=== PATIENT | female | born 2000 | race Caucasian/White ===

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

== ENCOUNTER 2023-03-04 05:11 | Observation (INO) ==
[2023-03-04] MEDS ORDERED: TXA 10% Non-IV Routes 100 MG/ML VIAL ONE (05:21)
[2023-03-04] MEDS ORDERED: ONDANSETRON INJ 2 MG/ML 2 ML VIAL IV STA (05:32)
[2023-03-04] MEDS ORDERED: TRANEXAMIC ACID 100 MG/ML 10 ML VIAL IV STA (05:32)
[2023-03-04] MEDS ORDERED: DESMOPRESSIN ACETATE 23 MCG in SODIUM CHLORIDE 0.9% 50 ML IV STA (05:32)
[2023-03-04] MEDS ORDERED: FAMOTIDINE 20MG IV PUSH 20 MG/5 ML SYR IV STA (05:32)
[2023-03-04] MEDS ORDERED: TRANEXAMIC ACID / 0.7% NACL 1,000 MG/100 ML BAG IV STA (05:38)
[2023-03-04] MEDS ORDERED: SODIUM CHLORIDE 0.9% 1,000 ML IV SCH (05:45)
--- NOTE | 2023-03-04 05:50 | Emergency Department Note ---
History of Present Illness General Chief complaint: Bleeding Stated complaint: BLEEDING FROM TONSILECTOMY 18 DAYS AGO Time Seen by Provider: 03/04/23 05:19 History of Present Illness This 22-year-old female had a tonsillectomy on 13 February at [place] who has a history of von Willebrand's disease. Patient apparently was eating popcorn this morning at 1 AM and some the kernels got stuck at her tonsillar pillar region. Patient states she has been bleeding pretty heavily for the past few hours. No history of blood transfusions in the past. Patient called her hotel service manager sewer separation designer Dr Polanco and was advised to take DDAVP and TXA when she got to the ER. Patient's surgery was done in [place] at [facility] by Dr. Lara. Home Medications Medication Instructions Recorded Confirmed Type loratadine 10 mg tablet PO 10/28/18 09/12/22 History norgestimate 0.25 mg-ethinyl 1 tab PO DAILY #28 tabs 09/18/20 09/12/22 Rx estradiol 35 mcg tablet (Sprintec (28)) polysaccharide iron complex 150 mg 150 mg PO DAILY #90 caps 09/18/20 09/12/22 Rx iron capsule (Ferrex) montelukast 10 mg tablet 10 mg PO DAILY #90 tabs 10/10/21 09/12/22 Rx budesonide-formoterol HFA 80 2 puff inhalation BID #10.2 grams 02/22/22 09/12/22 Rx mcg-4.5 mcg/actuation aerosol inhaler (Symbicort) lamotrigine 150 mg tablet 150 mg PO DAILY 04/04/22 09/12/22 History (Lamictal) lumateperone 42 mg capsule 42 mg PO DAILY 06/13/22 09/12/22 History (Caplyta) albuterol sulfate 90 mcg/actuation 2 puff inhalation Q4H PRN 12/30/22 Rx aerosol inhaler bronchospasm #3 Inhalers Allergies Allergy/AdvReac Type Severity Reaction Status Date / Time shellfish derived Allergy Severe HIVES, Verified 09/12/22 15:17 SWELLING house dust mite Allergy Intermediate Verified 09/12/22 15:17 cat dander Allergy Unknown Verified 09/12/22 15:17 peach Allergy Unknown Verified 09/12/22 15:17 No Known Drug Allergies Allergy Verified 09/12/22 15:17 Past Med/Surg History Medical History Shellfish allergy Tingling and throat problems with ingestion. Epinephrine pen until can go to installer technician next year ASD (atrial septal defect) spontaneous closure. s/p cardiology clearance bc chest pain. echo normal. History of Lyme disease 2012 Pneumonia, unspecified organism 2010 bilateral. Encounter for prophylactic administration of rabies immune globulin Exposure to bat without known bite Surgical History History of placement of ear tubes History of dental surgery TADS procedure. 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 marital status: Single Current Living Situation: Family Current Living Situation Comment: alone with 3 roommates Feels Safe at Home: Yes Childhood Exposure to Second-Hand Smoke: No Dental Care, Regularly: Yes Seatbelt Use: always Sunscreen Use: Yes Review of Systems A total of 10 systems reviewed and were otherwise negative Physical Exam Vital Signs Vital Signs - 24 hr 03/04/23 05:14 03/04/23 05:33 03/04/23 05:33 Temperature 36.5 C Temperature Source Temporal Artery Scan Pulse Rate 96 H Pulse Rate from SpO2 Sensor Respiratory Rate 20 Respiratory Effort / Characteristics Non-Labored Spontaneous Respiratory Depth Normal Blood Pressure 136/83 Blood Pressure Mean 100 Pulse Oximetry 98 98 Oxygen Delivery Method Room Air Room Air Room Air Sepsis Recent Fever Within 48 Hours No Sepsis New/Unexplained Change in Mental Status No Sepsis Action Taken by Nursing No Action Required 03/04/23 05:38 03/04/23 05:38 03/04/23 05:39 Temperature Temperature Source Pulse Rate 85 91 H Pulse Rate from SpO2 Sensor 91 H Respiratory Rate 16 Respiratory Effort / Characteristics Respiratory Depth Blood Pressure 137/74 Blood Pressure Mean 112 Pulse Oximetry 98 Oxygen Delivery Method Sepsis Recent Fever Within 48 Hours Sepsis New/Unexplained Change in Mental Status Sepsis Action Taken by Nursing 03/04/23 06:00 03/04/23 06:01 03/04/23 06:01 Temperature Temperature Source Pulse Rate 90 87 Pulse Rate from SpO2 Sensor Respiratory Rate 14 12 Respiratory Effort / Characteristics Respiratory Depth Blood Pressure 119/73 Blood Pressure Mean 91 Pulse Oximetry Oxygen Delivery Method Sepsis Recent Fever Within 48 Hours Sepsis New/Unexplained Change in Mental Status Sepsis Action Taken by Nursing VITALS: Vitals are noted on the nurse's note and reviewed by myself. Vital signs stable. GENERAL: Pleasant female actively spitting up blood, in no acute distress, nondiaphoretic, well-developed well-nourished. SKIN: The skin was without rashes, erythema, edema, or bruising. There is no tenting of the skin. Capillary reflex less than 2 seconds. HEAD: Normocephalic atraumatic. EARS: External auditory canals clear, tympanic membranes pearly olsen without erythema or effusion bilaterally. EYES: Pupils equal round and reactive to light and accommodation. Conjunctivae without injection, sclerae without icterus. Extraocular movements intact. NOSE: Patent, turbinates without inflammation or discharge. No sinus tenderness. MOUTH: Mucous membranes moist. moderate amount of blood coming out of the right tonsillar pillar region, Uvula midline. Airway patent. Tongue does not deviate. NECK: Supple without nuchal rigidity. No lymphadenopathy. No thyromegaly. Cervical spine is nontender. No JVD. HEART: Regular rate and rhythm LUNGS: Clear to auscultation bilaterally without wheezes, rales or rhonchi. No retractions or accessory muscle use. ABDOMEN: Positive bowel sounds x 4. Normal tympanic percussion. Soft, nontender, without masses or organomegaly. Todd sign negative. No guarding or rebound tenderness. No CVA tenderness MUSCULOSKELETAL: No muscle atrophy, erythema, or edema noted. NEURO: Patient was alert and oriented to person place and time. Normal sensation to light and sharp touch. No focal neurological deficits. Course Administered Medications Sodium Chloride (Nss) 1,000 mls @ 999 mls/hr IV .Q1H1M IRMA Stop: 03/04/23 06:45 Last Admin: 03/04/23 06:00 Dose: 999 mls/hr Documented By: JOVAN Discontinued Medications Desmopressin Acetate 23 mcg/ (Sodium Chloride) 55.75 mls @ 100 mls/hr IV NOW STA Stop: 03/04/23 06:05 Last Admin: 03/04/23 06:19 Dose: 100 mls/hr Documented By: JOVAN Famotidine (Pepcid 20mg Iv Push) 20 mg in 5 mls @ 2.5 mls/min IV NOW STA Stop: 03/04/23 05:33 Last Admin: 03/04/23 05:50 Dose: 2.5 mls/min Documented By: JOVAN Tranexamic Acid (Tranexamic Acid / 0.7% Nacl) 1,000 mg in 100 mls @ 600 mls/hr IV NOW STA Stop: 03/04/23 05:47 Last Infusion: 03/04/23 06:16 Dose: Infused Documented By: Admin: 03/04/23 06:08 Dose: 600 mls/hr Documented By: JOVAN Ondansetron HCl (Ondansetron Inj 2 Mg/Ml 2 Ml Vial) 4 mg IV NOW STA Stop: 03/04/23 05:33 Last Admin: 03/04/23 05:51 Dose: 4 mg Documented By: JOVAN Tranexamic Acid (Txa 10% Non-Iv Routes 100 Mg/Ml Vial) Confirm Administered Dose 1,000 mg .ROUTE .[facility] ONE Stop: 03/04/23 05:22 Last Admin: 03/04/23 06:16 Dose: Not Given Documented By: JOVAN Tranexamic Acid (Txa 10% Non-Iv Routes 100 Mg/Ml Vial) 1,000 mg [facility] ONE ONE Stop: 03/04/23 06:04 Last Admin: 03/04/23 05:40 Dose: 1,000 mg Documented By: JOVAN Critical Care Time Critical Care Time: Yes Total Critical Care Time: 35 I have personally spent 35 minutes of critical care time in the direct management of this patient. This includes bedside care, interpretation of diagnostic studies, and testing, discussion with consultants, patient, and family members, and other required patient management activities. This 35 minutes is in excess of all separately billable procedures. Medical Decision Making Medical Records Attestation: I reviewed the patient's medical records. Home Medications Current Medication List: was personally reviewed by me Laboratory Data Attestation: I reviewed the patient's lab results. 03/04/23 05:39 03/04/23 05:39 Lab Results 03/04/23 Range/Units 05:39 WBC 6.83 (4.8-10.8) K/ul RBC 4.61 (4.20-5.40) M/uL Hgb 12.8 (12.0-16.0) g/dl Hct 36.6 L (37.0-47.0) % MCV 79.4 L (80.0-100.0) fL MCH 27.8 (25.0-34.0) pg MCHC 35.0 (32.0-36.0) g/dL RDW Std Deviation 33.9 L (36.4-46.3) fL RDW Coeff of Temitope 11.8 (11.5-14.5) % Plt Count 301 (130-400) K/uL MPV 10.8 (9.4-12.4) fL Immature Gran % (Auto) 0.4 % Neut % (Auto) 63.0 % Lymph % (Auto) 28.7 % Bosque % (Auto) 7.8 % Eos % (Auto) 0.0 % Baso % (Auto) 0.1 % Neut # (Auto) 4.30 (1.40-6.50) K/uL Lymph # (Auto) 1.96 (1.20-3.40) K/uL Bosque # (Auto) 0.53 (0.11-0.59) K/uL Eos # (Auto) 0.00 (0.00-0.50) K/uL Baso # (Auto) 0.01 (0.00-0.20) K/uL Immature Gran # (Auto) 0.03 (0.01-0.20) K/uL PT 10.0 (9.0-12.0) Seconds INR 0.9 (0.9-1.1) APTT 33 H (21-31) Seconds PTT Ratio 1.2 Sodium 138 (136-145) mmol/L Potassium 3.3 L (3.5-5.1) mmol/L Chloride 105 (98-107) mmol/L Carbon Dioxide 26 (21-32) mmol/L Anion Gap 7 (3-11) BUN 14 (6-23) mg/dl Creatinine 0.55 L (0.6-1.2) mg/dl Est Cr Clr Drug Dosing 168.1 ml/min Est GFR ( Amer) > 150.0 ml/min Est GFR (Non-Af Amer) 134.1 ml/min BUN/Creatinine Ratio 25.5 H (10-20) Glucose 104 H (70-99(Fasting)) mg/dl Calcium 9.0 (8.6-10.3) mg/dl Total Bilirubin 0.2 (0.2-1.0) mg/dl AST 15 (13-39) U/L ALT 11 (7-52) U/L Alkaline Phosphatase 85 (34-104) U/L Total Protein 6.9 (6.0-8.3) gm/dl Albumin 3.8 (3.4-5.0) gm/dl Globulin 3.1 (2.5-4.0) gm/dl Albumin/Globulin Ratio 1.2 (0.9-2) HCG, Qual Negative (Negative) MDM Narrative Prior records/ancillary studies reviewed. Triage Nursing notes reviewed. Additional history obtained from the family. The patient's history was concerning for post tonsillar bleed Differential diagnosis: Etiologies such as post tonsillar bleed, coagulopathy, infection, hematoma, postsurgical complication, as well as others were entertained. ER treatment provided: Neb TXA, TXA IV, DDAVP, IV fluids, Zofran, Pepcid Patient was consented to blood if warranted and the consent was placed on the chart. On reassessment the patient felt better. Diagnostics interpreted by me: The labs Independently Interpreted by myself revealed stable H&H Glucose 104, negative hCG Consultation: A consultation was placed with patient's hotel service manager on-call Dr. Polanco and recommends TXA 1 g IV and DDAVP 0.3 mcg/kg max of 25 mcg. He then called back and recommends TXA 1 g every 4 hours for active bleeding. He also states he can give Amicar but I informed him we do not have that here. Consultation was placed with ENT Dr. Duron and recommends adding in ice water with hydroperoxide gargles. He then recommends n.p.o. and he will come in and see the patient. Consultation was placed with medicine and patient be admitted to their service. Case was discussed. This appears to be consistent with post tonsillar hemorrhage. Patient was medicated as above. ENT and hematology were consulted. Medicine will evaluate the patient for admission. I did speak to the patient's on-call hematology team who recommends TXA 1 g every 4 hours for active bleeding after the initial doses of DDAVP and TXA. Patient was reassessed multiple times. Vital signs remained stable. Bleeding has slowed down. She will be admitted to the medical service. By the evaluation outlined above emergent etiologies such as infection as well as others were deemed relatively unlikely. The pt informed about the findings as listed above. All questions were answered and pleased with the treatment. The chart was completed utilizing Spectrum5 Speech voice recognition software. Grammatical errors, random word insertions, pronoun errors, and incomplete sentences are an occassional consequence of this system due to software limitations, ambient noise, and hardware issues. Any formal questions or concerns about the content, text, or information contained within the body of this dictation should be directly addressed to the physician information assistant for clarification. Impression & Plan Post-tonsillectomy hemorrhage, Von Willebrand disease, type I Discharge Plan Visit Data Chief Complaint: Bleeding Stated Complaint: BLEEDING FROM TONSILECTOMY 18 DAYS AGO ED Provider: Love Mayorga ED Midlevel Provider: Paulina Galeas Discharge Problem: Post-tonsillectomy hemorrhage, Von Willebrand disease, type I Patient Disposition: Admitted As Inpatient Condition: Good Forms Stand Alone Forms: My [employer] Prescriptions Prescriptions: No Action albuterol sulfate 90 mcg/actuation HFA aerosol inhaler 2 puff inhalation Q4H PRN (Reason: bronchospasm) Qty: 3 3RF Rx Instructions: 3 inhalers for a 90 day supply loratadine 10 mg tablet PO norgestimate-ethinyl estradiol [Sprintec (28)] 0.25-35 mg-mcg tablet 1 tab PO DAILY Qty: 28 0RF polysaccharide iron complex [Ferrex 150] 150 mg iron capsule 150 mg PO DAILY Qty: 90 3RF lamotrigine [Lamictal] 150 mg tablet 150 mg PO DAILY montelukast 10 mg tablet 10 mg PO DAILY Qty: 90 3RF Caplyta 42 mg capsule 42 mg PO DAILY budesonide-formoterol [Symbicort] 80-4.5 mcg/actuation HFA aerosol inhaler 2 puff inhalation BID Qty: 10.2 3RF Rx Instructions: WITH A RINSE OF MOUTH AFTERWARDS. Referrals Referrals: Shelly Limon MD [Primary Care Provider] -
[2023-03-04] MEDS ORDERED: TXA 10% Non-IV Routes 100 MG/ML VIAL NEB ONE (06:03)
[2023-03-04 06:16] LABS: Alanine Aminotransferase 11 U/L (7-52); Albumin Globulin Ratio 1.2 (0.9-2); Albumin Level 3.8 gm/dl (3.4-5.0); Alkaline Phosphatase 85 U/L (34-104); Anion Gap 7 (3-11); Aspartate Aminotransferase 15 U/L (13-39); BUN Creatinine Ratio 25.5 (10-20); Bilirubin,Total 0.2 mg/dl (0.2-1.0); Blood Urea Nitrogen 14 mg/dl (6-23); Carbon Dioxide 26 mmol/L (21-32); Chloride 105 mmol/L (98-107); Creatinine Clr Calc Pharmacy 168.1 ml/min; Est GFR (African American) > 150.0 ml/min; Est GFR (Non-African American) 134.1 ml/min; Globulin 3.1 gm/dl (2.5-4.0); Glucose 104 mg/dl (70-99(Fasting)); Potassium 3.3 mmol/L (3.5-5.1); Sodium 138 mmol/L (136-145); Total Protein 6.9 gm/dl (6.0-8.3)
[2023-03-04 06:23] LABS: Basophils # (auto) 0.01 K/uL (0.00-0.20); Basophils % (auto) 0.1 %; Hematocrit (blood only) 36.6 % (37.0-47.0); Hemoglobin 12.8 g/dl (12.0-16.0); Immature Granulocytes # (auto) 0.03 K/uL (0.01-0.20); Immature Granulocytes % (auto) 0.4 %; Lymphocytes # (auto) 1.96 K/uL (1.20-3.40); Lymphocytes % (auto) 28.7 %; Mean Corpuscular Hemoglobin 27.8 pg (25.0-34.0); Mean Corpuscular Volume 79.4 fL (80.0-100.0); Mean Platelet Volume 10.8 fL (9.4-12.4); Monocytes # (auto) 0.53 K/uL (0.11-0.59); Monocytes % (auto) 7.8 %; Platelet Count 301 K/uL (130-400); Pregnancy Test, Serum Negative (Negative); RDW Coefficient of Variation 11.8 % (11.5-14.5); RDW Standard Deviation 33.9 fL (36.4-46.3); Red Blood Count 4.61 M/uL (4.20-5.40); White Blood Count 6.83 K/ul (4.8-10.8)
[2023-03-04 06:27] LABS: INR 0.9 (0.9-1.1); Partial Thromboplastin Ratio 1.2; Partial Thromboplastin Time 33 Seconds (21-31)
--- NOTE | 2023-03-04 08:27 | ENT Consultation ---
Date of Consultation March 04, 2023 Assessment & Plan (1) Secondary post tonsillectomy hemorrhage: As bleeding has begun to receed & stop with current IV Meds // Oral Meds - and Hematology Dept from [facility] has given ongoing guidelines for additional DDAVP will admit to [facility] for Observation. 1. Keep NPO except for MEDS & water sips. 2. Continue DDAVP administration per Hematology Recommendations. 3. Observe and monitor for any bleeding & associated issues. 4. Type and Screen completed. Present on Admission?: Yes (2) Von Willebrand disease, type I: 1. As bleeding has begun to receed & stop with current IV Meds // Oral Meds - an d Hematology Dept from [facility] has given ongoing guidelines for additional DDAVP will admit to [facility] for Observation. Keep NPO except for MEDS & water sips. 2. Continue DDAVP administration per Hematology Recommendations. 3. Observe and monitor for any bleeding & associated issues. 4. Type and Screen completed. Present on Admission?: Yes History of Present Illness Reason for Consultation: Post-Tonsillectomy Bleeding. Requesting Physician: Paulina Galeas PA-C Attending Physician: Erika Schmid. / Rory Bocanegra DO - Hospitalists. History of Present Illness The patient had a Tonsillectomy AND Adenoidectomy @ [facility] due to her known condition of von Willebrand disease and Risks for Bleeding. The Adenotons illectomy was safely performed on (14 FEB 2023). The patient recovered well and had returned to her [employer] Classes for the winter. She noticed that food has been "sticking" to the healing Tonsil fossae and sometimes was uncomfortable. Eating popcorn early in the AM she found too many particles uncomfortable in her throat. She had to black pickler her mother at the local airport at 3 AM today. Afterward she tried to pick the popcorn particles free from the RIGHT tonsil fossa and that's when the bleeding occurred. It wouldn't stop, so she presented to the [facility] about 5 AM for evaluation. She had been given TXA - DDAVP - Ice Gargles and H2O2 / Water Mix gargles to control or stop the bleeding. By 6:30 AM today the bleeding had significantly reduced and the patient is presently much more comfortable. 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 She is studying [employer]. Allergies Allergy/AdvReac Type Severity Reaction Status Date / Time shellfish derived Allergy Severe HIVES, Verified 09/12/22 15:17 SWELLING house dust mite Allergy Intermediate Verified 09/12/22 15:17 cat dander Allergy Unknown Verified 09/12/22 15:17 peach Allergy Unknown Verified 09/12/22 15:17 No Known Drug Allergies Allergy Verified 09/12/22 15:17 Home Medications Medication Instructions Recorded Confirmed Type loratadine 10 mg tablet 10 mg PO DAILY 10/28/18 03/04/23 History norgestimate 0.25 mg-ethinyl 1 tab PO DAILY #28 tabs 09/18/20 03/04/23 Rx estradiol 35 mcg tablet (Sprintec (28)) polysaccharide iron complex 150 mg 150 mg PO DAILY #90 caps 09/18/20 03/04/23 Rx iron capsule (Ferrex) montelukast 10 mg tablet 10 mg PO DAILY #90 tabs 10/10/21 03/04/23 Rx lamotrigine 150 mg tablet 150 mg PO DAILY 04/04/22 03/04/23 History (Lamictal) lumateperone 42 mg capsule 42 mg PO DAILY 06/13/22 03/04/23 History (Caplyta) albuterol sulfate 90 mcg/actuation 2 puff inhalation Q4H PRN 12/30/22 03/04/23 Rx aerosol inhaler bronchospasm #3 Inhalers budesonide-formoterol HFA 80 2 puff inhalation BID 03/04/23 03/04/23 History mcg-4.5 mcg/actuation aerosol inhaler (Symbicort) Patient History Medical History ASD (atrial septal defect) spontaneous closure. s/p cardiology clearance bc chest pain. echo normal. Encounter for prophylactic administration of rabies immune globulin Exposure to bat without known bite History of Lyme disease 2012 Pneumonia, unspecified organism 2010 bilateral. Shellfish allergy Tingling and throat problems with ingestion. 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 marital status: Single Current Living Situation: Family Current Living Situation Comment: alone with 3 roommates Feels Safe at Home: Yes Childhood Exposure to Second-Hand Smoke: No Dental Care, Regularly: Yes Seatbelt Use: always Sunscreen Use: Yes Review of Systems Review of Systems: The patient has NO vertigo, NO nystagmus The patient has NO stridor, NO wheezing Constitutional: as per Subjective / HPI; no fever, no chills and no fatigue Ear, Nose, Mouth, Throat: no nasal discharge, no post nasal drip, no nasal obstruction and no epistaxis Respiratory: no dyspnea, no hemoptysis and no wheezing Cardiovascular: no chest pain, no palpitations and no syncope Gastrointestinal: no abdominal pain Physical Exam Physical Exam: HEAD: Normocephalic CRANIAL NERVES: CN II - XII Intact NO Facial Weakness FACE: NO Erythema NO Rash Lips Normal EYES: EOMI PERRL Ears: External Ears - Normal Ext Aud. Canals - CLEAR Bilateral Tympanic Membranes - Normal Bilateral Middle Ears - CLEAR Bilateral NOSE: External Dorsum - NO Deformity Septum - intact - NO perforation. - NO bleeding in nose. Midline Turbinate - Normal shape & mucosa - NO Polyps - NO clots. Adenoids appear to be healing well. MOUTH: Dentition - Good Repair Floor of Mouth - CLEAR. NO Edema Whartons Ducts normal Tongue - NO masses - NO Ulcers. OROPHARYNX: Tonsils Absent RIGHT Tonsil fossa - with Fresh scab / early clot formation. - NO active bleeding seen from the RIGHT presently. LEFT Tonsil Fossa - with more mature eschar - NO signs of any bleeding. Uvula Midline Soft Palate Normal - NO swelling. NECK: Trachea Midline NO masses NO adenopathy LUNGS: Clear to Auscultation Cardio-Vascular: Reg Rate & Rhythm Results & Data Vital Signs (Past 12 Hours) Vital Signs Temp Pulse Resp BP Pulse Ox O2 Del Method 03/04/23 06:29 88 13 129/79 97 03/04/23 06:01 87 12 03/04/23 06:01 119/73 03/04/23 06:00 90 14 03/04/23 05:39 91 H 16 98 03/04/23 05:38 137/74 03/04/23 05:38 85 03/04/23 05:33 98 Room Air 03/04/23 05:33 Room Air 03/04/23 05:14 36.5 C 96 H 20 136/83 98 Room Air Laboratory Results Hgb = 12.8 WBC = 6.83 Hct = 36.6 % RBC = 4.61 Medications Administered TXA Oral Rinse given by ED. DDAVP by IV given by ED
[2023-03-04 10:51] VITALS: RESP 16
[2023-03-04] MEDS ORDERED: LACTATED RINGER'S 1,000 ML IV SCH (11:53)
[2023-03-04] MEDS ORDERED: ALBUTEROL HFA 8 GM INHALER INH PRN (11:53)
[2023-03-04] MEDS ORDERED: ONDANSETRON INJ 2 MG/ML 2 ML VIAL IV PRN (11:53)
[2023-03-04] MEDS ORDERED: ACETAMINOPHEN 500 MG TAB PO PRN (11:59)
--- NOTE | 2023-03-04 12:01 | History & Physical Report ---
Date of Service March 04, 2023 Assessment & Plan (1) Post-tonsillectomy hemorrhage: Plan: -B/l tonsillectomy on 02/13 with initial good postoperative recovery, acute hemorrhage secondary to trauma from lodged foreign body -S/p TXA and DDAVP, acute hemorrhage now resolved -ENT consulted, awaiting recommendations -Tylenol PRN pain control -Continue monitoring for hemorrhage recurrence (2) Von Willebrand disease, type I: Plan: -S/p TXA and DDAVP in ER -As above, acute bleeding has resolved (3) Hypokalemia: Plan: -K 3.3 on admission -Repleted in ER -Monitor BMP (4) Severe obstructive sleep apnea: Plan: -Was likely due to BMI + enlarged tonsils, pt has since lost considerable weight + tonsillectomy- notes improvement of her previous TORRIE symptoms -Deferring CPAP for now (5) Asthma: Plan: -Stable, not in exacerbation -Continue home Singulair, Symbicort, albuterol PRN -Stable respiratory status on RA at present (6) Anemia: Plan: -Hgb stable on admission -Continue home iron supplement (7) Bipolar disorder: Plan: -Continue Lamictal, Caplyta -No acute safety risk at present Plan FENGI: NPO Code status: Full DVT prophylaxis: Low-risk Isolation: None Unit: Medical/surgical Disposition planning: Anticipate home Admission and Anticipated Discharge Date Admission Date: March 04, 2023 History of Present Illness Chief Complaint: Bleeding from mouth Primary Care Provider: Shelly Limon MD Pt is 22 yo F with PMH TORRIE on CPAP, asthma, anemia, von Willebrand disease, bipolar disorder presenting with bleeding from mouth. Pt had b/l tonsillectomy on 02/13. Recovery went well with PRN Tylenol for pain control initially. Pt ate popcorn on 03/04 around 1 AM and noted some kernels became lodged in R tonsillar pillar region. Notes ongoing pain and bleeding from the area since for past few hours until ER arrival. She did call her java android developer who advised taking DDAVP and TXA in ER. Pt arrived to ER hemodynamically stable. Initial evaluation significant for K 3.3. Labs otherwise unremarkable. ER interventions include TXA nebulizer, famotidine 20 mg IV, Zofran 4 mg IV, NSS 1L bolus, TXA IV, desmopressin 23 mcg IV. Pt was seen by ENT in the ER, plan apparently to continue monitoring. At present, pt reports feeling well. Her bleeding resolved around 7 AM. Still reporting moderate pain around R tonsillectomy site. Denies fever/chills. Allergies Allergy/AdvReac Type Severity Reaction Status Date / Time shellfish derived Allergy Severe HIVES, Verified 09/12/22 15:17 SWELLING house dust mite Allergy Intermediate Verified 09/12/22 15:17 cat dander Allergy Unknown Verified 09/12/22 15:17 peach Allergy Unknown Verified 09/12/22 15:17 No Known Drug Allergies Allergy Verified 09/12/22 15:17 Home Medications Medication Instructions Recorded Confirmed Type loratadine 10 mg tablet 10 mg PO DAILY 10/28/18 03/04/23 History norgestimate 0.25 mg-ethinyl 1 tab PO DAILY #28 tabs 09/18/20 03/04/23 Rx estradiol 35 mcg tablet (Sprintec (28)) polysaccharide iron complex 150 mg 150 mg PO DAILY #90 caps 09/18/20 03/04/23 Rx iron capsule (Ferrex) montelukast 10 mg tablet 10 mg PO DAILY #90 tabs 10/10/21 03/04/23 Rx lamotrigine 150 mg tablet 150 mg PO DAILY 04/04/22 03/04/23 History (Lamictal) lumateperone 42 mg capsule 42 mg PO DAILY 06/13/22 03/04/23 History (Caplyta) albuterol sulfate 90 mcg/actuation 2 puff inhalation Q4H PRN 12/30/22 03/04/23 Rx aerosol inhaler bronchospasm #3 Inhalers budesonide-formoterol HFA 80 2 puff inhalation BID 03/04/23 03/04/23 History mcg-4.5 mcg/actuation aerosol inhaler (Symbicort) Past Med/Surg History Medical History ASD (atrial septal defect) spontaneous closure. s/p cardiology clearance bc chest pain. echo normal. Encounter for prophylactic administration of rabies immune globulin Exposure to bat without known bite History of Lyme disease 2011 Pneumonia, unspecified organism 2010 bilateral. Shellfish allergy Tingling and throat problems with ingestion. Epinephrine pen until can go to microsoft crm developer next year Surgical History History of adenoidectomy History of dental surgery TADS procedure. History of placement of ear tubes Family History Mother Allergies Asthma Father Shellfish allergy Hearing difficulty Grandmother (Maternal) Hypertension Breast cancer Social History Smoking Status: Former smoker Hx Alcohol Use: Yes Alcohol type: beer, wine and hard liquor Hx Substance Use: Yes Non-Prescribed Medications: Marijuana Last Used Substance Other:: two months Preferred Language: [place] Communication Ability: Effective Visual Impairment: No Limitations Hearing Ability: Normal Corporate Licensed Broker Required: No Beliefs That Will Affect Care: None marital status: Single Current Living Situation: Alone Current Living Situation Comment: [address] Other Information That Helps Us Care for You: No Feels Safe at Home: Yes Safety Concerns: Feels Safe At This Time Childhood Exposure to Second-Hand Smoke: No Dental Care, Regularly: Yes Seatbelt Use: always Sunscreen Use: Yes Review of Systems Review of Systems: Per HPI/Subjective Physical Exam Physical Exam: General: well-appearing, no acute distress HEENT: PERRL, EOMI, conjunctivae clear without injection, anicteric sclerae, moist mucous membranes, clear oropharynx without exudate or erythema. Dried blood noted around R tonsillar pillar region. Neck: supple, trachea midline, no thyromegaly, no JVD, no cervical lymphadenopathy CV: RRR, normal S1 and S2, no murmurs Resp: CTAB, no increased work of breathing, no crackles or wheezes Abd: Soft, nontender, nondistended, no guarding or rebound, no hepatosplenomegaly MSK: Normal bulk of all four extremities Neuro: AOx3, no focal motor or sensory deficits Skin: no rashes or lesions, warm and dry Ext: no LE peripheral edema or erythema, capillary refill <2s in all four extremities, 2+ LE peripheral pulses b/l Results & Data Results & Data Vital Signs (Past 12 Hours) Vital Signs Temp Pulse Pulse Resp BP BP Pulse Ox 03/04/23 11:00 36.8 C 71 16 106/67 96 03/04/23 10:31 77 03/04/23 09:11 36.8 C 82 16 97/56 L 98 03/04/23 07:11 36.5 C 79 14 103/65 97 03/04/23 06:29 88 13 129/79 97 03/04/23 06:01 87 12 03/04/23 06:01 119/73 03/04/23 06:00 90 14 03/04/23 05:39 91 H 16 98 03/04/23 05:38 137/74 03/04/23 05:38 85 03/04/23 05:33 98 03/04/23 05:33 03/04/23 05:14 36.5 C 96 H 20 136/83 98 O2 Del Method 03/04/23 11:00 Room Air 03/04/23 10:31 03/04/23 09:11 Room Air 03/04/23 07:11 Room Air 03/04/23 06:29 03/04/23 06:01 03/04/23 06:01 03/04/23 06:00 03/04/23 05:39 03/04/23 05:38 03/04/23 05:38 03/04/23 05:33 Room Air 03/04/23 05:33 Room Air 03/04/23 05:14 Room Air Code Status & VTE Plan VTE Prophylaxis Plan VTE Prophylaxis will be ordered: No Reason for no VTE drug order: Contraindicated Supervising Physician Co-Signing Physician Notes I personally examined the patient and verified all heredia points of history and exam, discussed case, and agree with decision making with Dr Vaughan seen ~6p. awake and feeling good. absolutely no further bleeding. really would like to eat. has done well through the day vitals noted nad heent nc at mmm no pharyngeal bleeding good clot adherent to back of throat no oozing no bleeding pharyngeal bleed - s/p TXA and DDAVP. has done well. really would like PO - discussed clears for now reasonable, but would hold on further advancement. CBC, BMP in AM otherwise as above Resident Activity Tracking Resident Involvement: Resident Care Provided Care Provided: Adult Hospital Medicine (6) Anemia Anemia type: iron deficiency Iron deficiency anemia type: chronic blood loss Qualified Code(s): D50.0 - Iron deficiency anemia secondary to blood loss (chronic)
[2023-03-04] MEDS ORDERED: POTASSIUM CHLORIDE CRTAB 20 MEQ TABCR PO STA (12:29)
[2023-03-04] MEDS ORDERED: lamoTRIgine 100 MG TAB PO SCH ×2 (12:30→21:00)
[2023-03-04 14:29] VITALS: TEMP 98.2
[2023-03-04] MEDS ORDERED: Nursing to Pharmacy Communication SCH (14:45)
[2023-03-04] MEDS ORDERED: ORAL CONTRACEPTIVE~ORDER AWAITING ACTION SCH (16:00)
--- NOTE | 2023-03-04 18:18 | Billing Data ---
Date of Service March 04, 2023 Coding Level of Care Code 59779 INT INP/OBS CARE
--- NOTE | 2023-03-04 19:30 | Ears,Nose,Throat Progress Note ---
Date of Service March 04, 2023 Assessment & Plan (1) Secondary post tonsillectomy hemorrhage: Plan: IMP: Stable since information systems security developer Post-Tonsillectomy Bleed. Oral Rinses / Gargles completed as well as DDAVP infusions. I think we are nearly out of the risk zone for bleeding now that we are 12 hours out. PLAN: Advance to Soft Mechanical Diet now. IF no bleeding issues - then may discharge to Home. Follow-up grant as needed as will be more than 3 weeks out from initial surgery. Present on Admission?: Yes (2) Von Willebrand disease, type I: Present on Admission?: Yes Admission and Anticipated Discharge Date Admission Date: March 04, 2023 Subjective Patient had remained in C7 of ED all day now. It has been more than 12 hours without any further bleeding. NO clots. NO emesis. Patient is alert - sitting up in bed doing homework. Physical Exam Physical Exam: Alert & Oriented. VSS Exam: Head / Face: Cranial Nerves intact. No weakness. Nose: CLear & Patent. NO bleeding signs. Clear secretions. Mouth: Dentition clean Floor of mouth clean Tongue normal - NO signs of any bleeding. Oropharynx: Uvula midline. RIGHT Tonsil fossa with an almond sized clot/scab at the superior pole of the tonsil fossa. - NO signs of any ooze or bleeding. LEFT Tonsil Fossa is CLEAN. Hypopharynx: Voice Clear. Swallowing all secrections. Neck: supple. Trachea Midline. GI: NO Nausea - NO emesis. IMP: Stable since information systems security developer Post-Tonsillectomy Bleed. Oral Rinses / Gargles completed as well as DDAVP infusions. I think we are nearly out of the risk zone for bleeding now that we are 12 hours out. PLAN: Advance to Soft Mechanical Diet now. IF no bleeding issues - then may discharge to Home. Follow-up grant as needed as will be more than 3 weeks out from initial surgery. Results & Data Vital Signs (Past 12 Hours) Vital Signs Temp Pulse Pulse Resp BP Pulse Ox O2 Del Method 03/04/23 14:41 36.8 C 71 16 105/79 98 Room Air 03/04/23 14:20 36.8 C 83 16 101/57 L 98 Room Air 03/04/23 12:35 Room Air 03/04/23 12:33 36.7 C 73 16 93/58 L 97 Room Air 03/04/23 11:00 36.8 C 71 16 106/67 96 Room Air 03/04/23 10:31 77 03/04/23 09:11 36.8 C 82 16 97/56 L 98 Room Air PG Care Time/CCT Total # of Minutes Spent Total Time Spent with Patient: Total time spent is greater than 50% in coordination of care (as documented) at patient's floor/unit and/or counseling patient: Coding Level of Care Code 06512 SUB INP/OBS CARE 03/13MIN Diagnoses Secondary post tonsillectomy hemorrhage J95.830 Von Willebrand disease, type I D68.0
[2023-03-04 21:51] VITALS: BP 118/74; PULSE 73; O2SAT 97
--- NOTE | 2023-03-04 22:35 | Discharge Summary ---
Date of Service March 04, 2023 Admission HPI Per Admitting Provider Pt is 22 yo F with PMH TORRIE on CPAP, asthma, anemia, von Willebrand disease, bipolar disorder presenting with bleeding from mouth. Pt had b/l tonsillectomy on 02/13. Recovery went well with PRN Tylenol for pain control initially. Pt ate popcorn on 03/04 around 1 AM and noted some kernels became lodged in R tonsillar pillar region. Notes ongoing pain and bleeding from the area since for past few hours until ER arrival. She did call her inspector machine cut glass who advised taking DDAVP and TXA in ER. Pt arrived to ER hemodynamically stable. Initial evaluation significant for K 3.3. Labs otherwise unremarkable. ER interventions include TXA nebulizer, famotidine 20 mg IV, Zofran 4 mg IV, NSS 1L bolus, TXA IV, desmopressin 23 mcg IV. Pt was seen by ENT in the ER, plan apparently to continue monitoring. At present, pt reports feeling well. Her bleeding resolved around 7 AM. Still reporting moderate pain around R tonsillectomy site. Denies fever/chills. Admission Exam Per Admitting Provider General: well-appearing, no acute distress HEENT: PERRL, EOMI, conjunctivae clear without injection, anicteric sclerae, moist mucous membranes, clear oropharynx without exudate or erythema. Dried blood noted around R tonsillar pillar region. Neck: supple, trachea midline, no thyromegaly, no JVD, no cervical lymphadenopathy CV: RRR, normal S1 and S2, no murmurs Resp: CTAB, no increased work of breathing, no crackles or wheezes Abd: Soft, nontender, nondistended, no guarding or rebound, no hepatosplenomegaly MSK: Normal bulk of all four extremities Neuro: AOx3, no focal motor or sensory deficits Skin: no rashes or lesions, warm and dry Ext: no LE peripheral edema or erythema, capillary refill <2s in all four extremities, 2+ LE peripheral pulses b/l Principal Diagnosis oropharyngeal bleeding Discharge Exam Constitutional: well appearing, no acute distress HEENT: normocephalic, no conjunctival injection CV: clinically well perfused, no LE edema Respiratory: no increased work of breathing MSK: no gross deformities noted Skin: warm, dry, no rashes Neuro: alert, oriented, no FND noted Discharge Data Allergies Allergy/AdvReac Type Severity Reaction Status Date / Time shellfish derived Allergy Severe HIVES, Verified 09/12/22 15:17 SWELLING house dust mite Allergy Intermediate Verified 09/12/22 15:17 cat dander Allergy Unknown Verified 09/12/22 15:17 peach Allergy Unknown Verified 09/12/22 15:17 No Known Drug Allergies Allergy Verified 09/12/22 15:17 Consultations 03/04/23 06:24 ED Decision to Admit Stat Hospital Course (1) Post-tonsillectomy hemorrhage: -B/l tonsillectomy on 02/13 with initial good postoperative recovery, acute hemorrhage secondary to trauma from lodged foreign body -S/p TXA and DDAVP: acute hemorrhage resolved -ENT consulted: advanced to soft diet and if tolerated, stable for d/c with f/u PRN -Diet well tolerated; pt stable for discharge home -Encouraged pt to keep soft diet for a few days before advancing further; return precautions discussed -Follow up encouraged with PCP (2) Von Willebrand disease, type I: -S/p TXA and DDAVP in ER -As above, bleeding resolved (3) Hypokalemia: -K 3.3 on admission -Repleted in ER (4) Severe obstructive sleep apnea: -Was likely due to BMI + enlarged tonsils, pt has since lost considerable weight + tonsillectomy- notes improvement of her previous TORRIE symptoms -Encourage continued f/u with PCP/sleep medicine (5) Asthma: -Stable, not in exacerbation -No changes made to home regimen (6) Anemia: -Hgb stable on admission -Continue home iron supplement (7) Bipolar disorder: -Continue Lamictal, Caplyta -No acute safety risk at present Plan FENGI: soft diet tolerated w/o bleeding prior to discharge Code status: Full DVT prophylaxis: Low-risk Unit: Medical/surgical Dispo: home Total Time Total Time Spent Total Time Spent (In Minutes): as per attending attestation Discharge Plan Discharge Items Patient Disposition: Home - Self-Care Reason For Visit: OROPHARYNGEAL BLEED Discharge Diagnosis: oropharyngeal bleed in setting of VWD Condition on Discharge: Good Activity: Per Instructions section Non-emergency contact: Primary Care Provider Call non-emergency contact if: you have any medication questions and your symp toms worsen Follow-up/Referrals: Shelly Limon MD [Primary Care Provider] - Diet: Regular Diet Texture: Dental soft (bite-sized) Addtl Attending Provider Instructions: You were admitted to the hospital for bleeding from your mouth after eating popcorn with subsequent kernels lodged in between your teeth. You were treated with two medications to help you stop bleeding in the setting your von Willebrand disease- DDAVP and TXA. Your bleeding then resolved. Your diet was advanced to soft foods and you tolerated this well. The general medicine doctor and ENT doctor thought you were safe for discharge home. You should continue with a soft diet for a day or two until you feel it is safe to advance to a more "normal" diet. A discharge summary will be sent to your primary care physician to ensure continuity of care. Please bring this discharge summary with you to your next office appointment so that your provider can review it at that time. Medications: Your medication list has been reviewed and reconciled upon discharge to ensure accuracy and continuity of care. An updated list of all your medications is included with your hospital discharge paperwork. Please review this list closely and make note of any changes to your medications. - No changes were made to your home regimen. Follow up appointments: - Make a follow up appointment with your PCP within the next week. It is very important that you follow up with them shortly after discharge from the hospital. - You should also keep regular follow up appointments with your inspector machine cut glass. - Keep all of your follow up appointments as already scheduled. If you cannot make an appointment, notify your provider. CONTACT YOUR PRIMARY CARE PROVIDER if you experience any of the following: - Difficulty following your treatment plan - Difficulty taking any of your medications CALL 911 OR GO TO THE EMERGENCY DEPARTMENT if you experience any of the following: - Bleeding that does not stop or is concerning to you - Sudden, severe abdominal pain or nausea/vomiting - Severe chest pain or chest pain that radiates to your jaw or arm - Sudden, severe shortness of breath or difficulty breathing Pending Studies at Discharge: No Stand-Alone Forms: My Split, Smoking Cessation Medications and DC Order Prescriptions: Continued albuterol sulfate 90 mcg/actuation HFA aerosol inhaler 2 puff inhalation Q4H PRN (Reason: bronchospasm) Qty: 3 3RF Rx Instructions: 3 inhalers for a 90 day supply loratadine 10 mg tablet 10 mg PO DAILY norgestimate-ethinyl estradiol [Sprintec (28)] 0.25-35 mg-mcg tablet 1 tab PO DAILY Qty: 28 0RF polysaccharide iron complex [Ferrex 150] 150 mg iron capsule 150 mg PO DAILY Qty: 90 3RF lamotrigine [Lamictal] 150 mg tablet 150 mg PO DAILY montelukast 10 mg tablet 10 mg PO DAILY Qty: 90 3RF Caplyta 42 mg capsule 42 mg PO DAILY budesonide-formoterol [Symbicort] 80-4.5 mcg/actuation HFA aerosol inhaler 2 puff inhalation BID Rx Instructions: WITH A RINSE OF MOUTH AFTERWARDS. Patient stated she uses as needed Discharge Orders: Discharge Order (Routine); Ordered 03/04/23 Ordered By: Danna Burgos Admission Data Admit Date/Time: 03/04/23 09:19 Attending Provider: Rory Bocanegra Admit Provider: Rory Bocanegar Primary Care Provider: Shelly Limon Other Providers: Erika Schmid Other Interventions: Discharge Summary Assessment (RN) Last Done: 03/04/23 21:49 Supervising Physician Co-Signing Physician Notes I personally examined the patient and verified all heredia points of history and exam, discussed case, and agree with decision making with Dr Vaughan/Aubrey seen ~6p. awake and feeling good. absolutely no further bleeding. really would like to eat. has done well through the day vitals noted nad heent nc at mmm no pharyngeal bleeding good clot adherent to back of throat no oozing no bleeding pharyngeal bleed - s/p TXA and DDAVP. has done well. started clear liquid diet ~1hr later ENT had re-evaluated, agreed she looked very stable, and felt that if she could tolerate mechanical soft she would be safe for home - did well/was able to go home. outpt f/u. otherwise as above Resident Activity Tracking Resident Involvement: Resident Care Provided Care Provided: Adult Hospital Medicine
[2023-03-05] MEDS ORDERED: FLUTICASONE/VILANTEROL 100/25MCG 14 PUFFS/INHALER INH PRN (09:00)
[2023-03-05] MEDS ORDERED: lamoTRIgine 100 MG TAB PO SCH (09:00)
[2023-03-05] MEDS ORDERED: LORATADINE 10 MG TAB PO SCH (09:00)
[2023-03-05] MEDS ORDERED: IRON POLYSACCHARIDE COMPLEX 150 MG CAPSULE PO SCH (09:00)
[2023-03-05] MEDS ORDERED: MONTELUKAST SODIUM 10 MG TABLET PO SCH (09:00)
--- NOTE | 2023-03-05 13:16 | Billing Data ---
Date of Service March 04, 2023 Coding Level of Care Code INP/OBS EV SAME DAY LV 2,70MIN Comment disregard H&P code - after the day progressed, was same day admit/dc
== END 2023-03-04 21:51 | disposition home or self-care (01) ==
LOC: SUATTDRO → ED 05:11 → EDINP 05:11
DX: F31.9 Bipolar disorder, unspecified; Z87.891 Personal history of nicotine dependence; G47.33 Obstructive sleep apnea (adult) (pediatric); J45.909 Unspecified asthma, uncomplicated; E87.6 Hypokalemia; Z79.51 Long term (current) use of inhaled steroids; Y83.8 Other surgical procedures as the cause of abnormal reaction of the patient, or of later complication, without mention of misadventure at the time of the procedure; D68.01 Von Willebrand disease, type 1; J95.830 Postprocedural hemorrhage of a respiratory system organ or structure following a respiratory system procedure; D50.0 Iron deficiency anemia secondary to blood loss (chronic); Z79.899 Other long term (current) drug therapy; Z79.3 Long term (current) use of hormonal contraceptives